=== PATIENT | female | born 1955 | race Caucasian/White ===

== ENCOUNTER → 2017-01-14 | Outpatient (CLI) | payer OTHER | END | disposition home or self-care (01) | LOC: PTH.S 01-09 13:00 → RAD.S 01-09 13:30 → PTH.S 12:16 → RAD.S 13:00 | DX: N60.11 Diffuse cystic mastopathy of right breast (principal); E11.9 Type 2 diabetes mellitus without complications; I10 Essential (primary) hypertension ==